=== PATIENT | male | born 1985 | race Caucasian/White ===

== ENCOUNTER 2019-10-16 11:23 | Emergency (ER) | payer BC, OTHER ==
[~2019-10-16] VITALS: Ht 185.4 cm; Wt 94.6 kg
[2019-10-16 11:34] VITALS: BP 128/83
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
[2019-10-16 13:04] VITALS: BP 128/83
== END 2019-10-16 13:10 | disposition home or self-care (01) ==
LOC: MED 11:23
DX: M25.531 Pain in right wrist (principal); V43.52XA Car driver injured in collision with other type car in traffic accident, initial encounter; Y93.89 Activity, other specified; Y92.89 Other specified places as the place of occurrence of the external cause; Y99.8 Other external cause status
CPT/HCPCS: 73110; 99283; Q0092

== ENCOUNTER 2020-12-02 17:07 | Emergency (ER) | payer BC, OTHER ==
[~2020-12-02] VITALS: Ht 185.4 cm; Wt 88.0 kg
[2020-12-02 17:13] VITALS: BP 132/88
--- NOTE | 2020-12-02 17:16 | NUR ---
PATIENT AMBULATED TO BED 11.
--- NOTE | 2020-12-02 17:33 | NUR ---
35 Y/O M C/O UPPER ABD PAIN 5/10 THAT RADIATES TO LLQ. PT STATES PAIN GETS WORSE WHEN EATING, HAS NOT HAD STRONG APPETITE. NKA. PMH: IBS. DENIES SOB, COUGH, CHEST PAIN, FEVER, OR CONTACT WITH ANYONE COVID POSITIVE. NO EMESIS EPISODES, BUT DOES COMPLAIN OF NAUSEA. STOOL IS WATERY, 3 BMS TODAY, LAST ONE WAS AROUND 1700. DIARRHEA EVERY TIME HE USES THE BATHROOM, PAIN INTENSIFIES AFTER EATING. LAST FULL MEAL WAS 12/01/20 PM, STATES HE ONLY HAD CRACKERS AND A BANANA THIS AM. DENIES ANY BURNING OR PAIN DURING URINATION. PT WAS ABLE TO PROVIDE URINE SAMPLE.
[2020-12-02] MEDS ORDERED: KETOROLAC 30 MG/ML VIAL IVP ONE (17:40)
[2020-12-02] MEDS ORDERED: NACL 0.9% 1,000 ML IV ONE (17:40)
[2020-12-02] MEDS ORDERED: ONDANSETRON 4 MG/2 ML VIAL IVP ONE (17:40)
[2020-12-02 18:03] LABS: BASOPHILS # (AUTO) 0.1 K/uL (0.00-0.22); BASOPHILS % (AUTO) 0.7 % (0.0-2.0); EOSINOPHILS # (AUTO) 0.1 K/uL (0-0.4); EOSINOPHILS % (AUTO) 0.8 % (0.0-4.0); HEMATOCRIT 44.7 % (36-52); HEMOGLOBIN 14.5 g/dL (12.0-18.0); LYMPHOCYTES % (AUTO) 19.8 % (20.5-51.1); MEAN CORPUSCULAR HEMOGLOBIN 29 pg (27-31); MEAN CORPUSCULAR HGB CONC 32 g/dL (33-37); MEAN CORPUSCULAR VOLUME 88.9 fL (80-94); MONOCYTES # (AUTO) 0.8 K/uL (0.8-1.0); MONOCYTES % (AUTO) 7.5 % (1.7-9.3); NEUTROPHILS # (AUTO) 7.2 K/uL (1.8-7.7); NEUTROPHILS % (AUTO) 71.2 % (42.2-75.2); PLATELET COUNT (AUTO) 403 K/uL (140-450); RED BLOOD CELL COUNT(AUTO) 5.03 MIL/uL (4.20-6.10); RED CELL DISTRIBUTION WIDTH 13.5 % (11.6-13.7); WHITE BLOOD COUNT (AUTO) 10.1 K/uL (4.8-10.8)
--- NOTE | 2020-12-02 18:03 | NUR ---
IMAGING AT BEDSIDE.
[2020-12-02 18:20] LABS: ALBUMIN 4.1 g/dL (3.4-5.0); ANION GAP 14.3 (8-16); CARBON DIOXIDE 26.4 mmol/L (21-32); CREATININE 1.1 mg/dL (0.6-1.3); POTASSIUM 3.7 mmol/L (3.5-5.1); TOTAL BILIRUBIN 0.4 mg/dL (0.0-1.0)
[2020-12-02 19:03] VITALS: BP 132/88
--- NOTE | 2020-12-02 19:04 | NUR ---
Patient discharged with v/s stable. Written and verbal after care instructions given and explained. Patient alert, oriented and verbalized understanding of instructions. Ambulatory with steady gait. All questions addressed prior to discharge. ID band removed. Patient advised to follow up with PMD. Rx of LOMOTIL, MOTRIN, ZOFRAN given. Patient educated on indication of medication including possible reaction and side effects. Opportunity to ask questions provided and answered.
== END 2020-12-02 19:04 | disposition home or self-care (01) ==
LOC: MED 17:07
DX: A08.4 Viral intestinal infection, unspecified (principal); F12.90 Cannabis use, unspecified, uncomplicated; Z98.890 Other specified postprocedural states
CPT/HCPCS: 36415; 76705; 80053; 81002; 83690; 85025; 96361; 96374; 96375; 99284; J1885; J2405; J7030

== ENCOUNTER 2021-04-10 15:20 | Emergency (ER) | payer OTHER ==
[~2021-04-10] VITALS: Ht 182.9 cm; Wt 83.0 kg
[2021-04-10 15:37] VITALS: BP 150/87
[2021-04-10] MEDS ORDERED: PENICILLIN G BENZATHINE L-A 1.2 MU/2 ML SYR IM ONE (17:35)
[2021-04-10] MEDS ORDERED: BACI1PAC6 TP (17:57)
[2021-04-10] MEDS ORDERED: CEPH-588 PO (17:57)
[2021-04-10 18:05] VITALS: BP 150/87
== END 2021-04-10 18:06 | disposition home or self-care (01) ==
LOC: MED 15:20
DX: Z11.3 Encounter for screening for infections with a predominantly sexual mode of transmission (principal); Z79.899 Other long term (current) drug therapy
CPT/HCPCS: 36415; 81002; 86592; 96372; 99283; J0561

== ENCOUNTER 2021-12-01 20:09 | Emergency (ER) | payer OTHER ==
[~2021-12-01] VITALS: Ht 182.9 cm; Wt 79.4 kg
[~2021-12-01 20:09] MED LIST: BACI1PAC6 TP; CEPH-588 PO
[2021-12-01 20:16] VITALS: BP 112/68
--- NOTE | 2021-12-01 20:16 | NUR ---
to bed ambulatory
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
[2021-12-01] MEDS ORDERED: KETOROLAC 30 MG/ML VIAL IM ONE (20:50)
[2021-12-01 21:28] LABS: BASOPHILS % (AUTO) 0.4 % (0.0-2.0); EOSINOPHILS % (AUTO) 0.4 % (0.0-4.0); HEMATOCRIT 41.7 % (36-52); LYMPHOCYTES # (AUTO) 1.6 K/uL (2.0-11.5); LYMPHOCYTES % (AUTO) 16.1 % (20.5-51.1); MEAN CORPUSCULAR HEMOGLOBIN 31 pg (27-31); MEAN CORPUSCULAR HGB CONC 34 g/dL (33-37); MEAN CORPUSCULAR VOLUME 90.8 fL (80-94); MONOCYTES # (AUTO) 0.8 K/uL (0.8-1.0); MONOCYTES % (AUTO) 8.3 % (1.7-9.3); NEUTROPHILS # (AUTO) 7.5 K/uL (1.8-7.7); NEUTROPHILS % (AUTO) 74.8 % (42.2-75.2); PLATELET COUNT (AUTO) 329 K/uL (140-450); RED BLOOD CELL COUNT(AUTO) 4.59 MIL/uL (4.20-6.10); RED CELL DISTRIBUTION WIDTH 13.2 % (11.6-13.7); WHITE BLOOD COUNT (AUTO) 10.1 K/uL (4.8-10.8)
[2021-12-01 21:48] LABS: ANION GAP 13.4 (8-16); CARBON DIOXIDE 28.2 mmol/L (21-32); POTASSIUM 4.6 mmol/L (3.5-5.1); TOTAL BILIRUBIN 0.3 mg/dL (0.0-1.0)
[2021-12-01] MEDS ORDERED: KETOROLAC 30 MG/ML VIAL ONE (22:05)
[2021-12-01] MEDS ORDERED: CYCL-711 PO (22:13)
[2021-12-01] MEDS ORDERED: BACI1PAC6 TP (22:13)
[2021-12-01] MEDS ORDERED: NAPR-54 PO (22:13)
[2021-12-01] MEDS ORDERED: BACITRACIN OINT 500 UNITS/GM PKT TP ONE (22:15)
--- NOTE | 2021-12-01 22:33 | NUR ---
Patient discharged with v/s stable. Written and verbal after care instructions given and explained. Patient alert, oriented and verbalized understanding of instructions. Ambulatory with steady gait. All questions addressed prior to discharge. ID band removed. Patient advised to follow up with PMD. Rx of BACITRACIN, FLEXERIL given. Patient educated on indication of medication including possible reaction and side effects. Opportunity to ask questions provided and answered.
== END 2021-12-01 22:33 | disposition home or self-care (01) ==
LOC: MED 20:09
DX: S73.102A Unspecified sprain of left hip, initial encounter (principal); S80.12XA Contusion of left lower leg, initial encounter; S00.01XA Abrasion of scalp, initial encounter; R55 Syncope and collapse; Z79.899 Other long term (current) drug therapy; Z88.1 Allergy status to other antibiotic agents; W22.8XXA Striking against or struck by other objects, initial encounter; Y93.89 Activity, other specified; Y92.89 Other specified places as the place of occurrence of the external cause; Y99.8 Other external cause status
CPT/HCPCS: 36415; 70450; 71045; 73552; 80053; 84484; 85025; 93005; 96372; 99285; J1885; Q0092